=== PATIENT | male | born 2000 | race African-American/Black ===

== ENCOUNTER 2022-05-15 14:02 | Emergency (ER) | payer SELFPAY ==
[~2022-05-15] VITALS: Ht 188 cm; Wt 83.9 kg
[2022-05-15] MEDS ORDERED: TAMIFLU6 MG/1 ML PO (14:40)
== END 2022-05-15 14:46 | disposition home or self-care (01) ==
LOC: FSED 14:14
DX: R05.9 Cough, unspecified (principal); J10.1 Influenza due to other identified influenza virus with other respiratory manifestations; F17.210 Nicotine dependence, cigarettes, uncomplicated
CPT/HCPCS: 83518; 87400; 99283